=== PATIENT | male | born 1935 | race Caucasian/White ===

== ENCOUNTER 2020-05-14 21:35 | Inpatient (IN) | payer OTHER, MEDICARE ==
[~2020-05-14] VITALS: Ht 170.2 cm; Wt 87.3 kg
[2020-05-14 21:51] VITALS: BP 172/99
[2020-05-14 22:13] LABS: ABSOLUTE NEUTROPHILS 10.6 thou/uL (1.4-8.2); BASOPHILS 0.4 % (0.0-2.0); HEMOGLOBIN 17.7 gm/dL (14.0-18.0); LYMPHOCYTES 4.3 % (24.0-44.0); MCH 31.9 pg (26.0-34.0); MCHC 34.1 g/dL (28.0-37.0); MCV 93.7 fL (80.0-100.0); MONOCYTES 3.7 % (1.0-8.0); PLATELET COUNT 75 thou/uL (150-400); POLYS 91.6 % (36.0-66.0); RBC 5.55 mil/uL (4.50-6.00); RDW 15.5 % (10.5-14.5); WBC 11.6 thou/uL (4.0-11.0)
[2020-05-14 22:24] LABS: ANION GAP 15 mmol/L (7-16); BUN 35 mg/dL (7-18); CALCIUM 8.4 mg/dL (8.5-10.1); CHLORIDE 99 mmol/L (98-107); CO2 22 mmol/L (21-32); CREATININE 1.7 mg/dL (0.7-1.3); GLUCOSE 123 mg/dL (74-106); POTASSIUM 4.3 mmol/L (3.5-5.1); SODIUM 136 mmol/L (136-145)
--- NOTE | 2020-05-14 22:24 | NUR ---
FRIEND SUNDAY WRIGHT, HERE, WILL CHECK AND SEE IF PT WILL ALLOW US TO GIVE INFO TO HER, HE HAS NO LIVING RELATIVES ACCORDING TO MS WRIGHT
[2020-05-14 22:25] LABS: BE(vivo) -4.3 mmol/L (-2 to +3); HCO3 16.6 mmol/L (22.0-26.0); PCO2 23.4 mmHg (35.0-45.0); PO2 52.7 mmHg (80.0-100.0); pH 7.468 (7.360-7.450)
[2020-05-14 22:32] LABS: TROPONIN-I <0.06 ng/mL (<0.06)
[2020-05-14 23:11] LABS: URINE BILIRUBIN 1+ (Negative); URINE BLOOD 3+ (Negative); URINE CLARITY CLOUDY; URINE COLOR BROWN; URINE GLUCOSE-RANDOM* NEGATIVE (Negative); URINE KETONES TRACE (Negative); URINE LEUKOCYTES-REFLEX NEGATIVE (Negative); URINE NITRITE-REFLEX NEGATIVE (Negative); URINE PROTEIN (DIPSTICK) 2+ (Negative); URINE SPECIFIC GRAVITY >= 1.030 (1.005-1.035)
[2020-05-14 23:28] LABS: BACTERIA-REFLEX 1-9 Few /HPF (None Seen); CELLULAR CASTS 0-3 Few /LPF (None Seen); COARSE GRANULAR CASTS 0-3 Few /LPF (None Seen); CRYSTALS None Seen /LPF (None Seen); HYALINE CASTS 4-10 Moderate /LPF (None Seen); MUCUS 4-6 Moderate strn/LPF (None Seen); SQUAMOUS 4-10 Moderate /LPF (0-3); URINE WBC-REFLEX 0-5 Rare /HPF (0-5)
[2020-05-14] MEDS ORDERED: TRAZODONE HCL50 MG PO (23:43)
[2020-05-14] MEDS ORDERED: NORVASC5 MG PO (23:43)
[2020-05-14] MEDS ORDERED: LOPRESSOR50 PO (23:43)
[2020-05-15] VITALS (65 sets, daily range): BP systolic 81–133; BP diastolic 37–76
[2020-05-15 05:35] LABS: BE(vivo) -2.2 mmol/L (-2 to +3); HCO3 21.3 mmol/L (22.0-26.0); PCO2 33.5 mmHg (35.0-45.0); PO2 81.8 mmHg (80.0-100.0); pH 7.421 (7.360-7.450); sO2 96.3 % (92.0-98.0)
--- NOTE | 2020-05-15 06:12 | NUR ---
ASSUMED CARE OF PATIEN FROM ER. ADMISSION COMPLETE WITH INFORMATION FROM PATIENT. DEEP TISSUE INJUIES NOTED TO BUTTOCKS AND SACRUM, PICTURES TAKEN. STATES HE GETS AROUND WITH A WHEELCHAIR AT HOME. HOWEVER I APPEARS HE HAS SOME FOOT DROP. BETTS PLACED PER ER ORDERS. AFTER ADMISSION COMPLETE, ROUNDING ON PATIENT AND HE WAS COMPLETELY LETHARGIC AND ALMOST IMPOSSIBLE TO AROUSE. PULSES PRESENT, SPONTANEOUSLY BREATHING. ORDERS FOR ABG OBTAINED. NO CRITICAL RESULTS. REMAINS ON BIPAP. POOR HISTORIAN. NPO PER ORDERS. POC GOALS ESTABLISHED. WAITING FOR COVID TEST RESULTS.
--- NOTE | 2020-05-15 09:03 | EKG ---
Formerly [facility] [place] [address] ELECTROCARDIOGRAM REPORT Name: LANE MCNULTY Room #: 236-P ADM IN M.R.#: [id number] Admission: 05/15/20 Attend Phys: Saqib Mancilla MD Discharge: Date of : 39 Report #: [id number] THIS REPORT FOR: cc: FAM - Family physician unknown FAM - Family physician unknown Jas Powers MD [facility] ~ THIS REPORT FOR: //name// [facility] ED Test Date: 2020-05-14 Test Time: 22:48:03 Pat Name: LANE MCNULTY Department: Room: 236 Gender: M Nurse Practitioner Hospitalist: : 1935 Requested By: Sergio Hirsch Order Number: [id number] MD: Jas Powers Measurements Intervals [place] Rate: 129 P: 245 [place]: 102 QRS: -104 QRSD: 133 T: 61 QT: 369 QTc: 541 Interpretive Statements 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
--- NOTE | 2020-05-15 10:05 | NUR ---
TALKED WITH DR. PETERSON REGARDING CONSULT. WOULD LIKE TO CONSULT INFECTIONS DISEASE FOR SPESIS MANAGMENT. INTERVENTIONAL RADIOLOGY FOR CENTRAL LINE PLACEMENT. AND START SEPSIS PROTOCOL. CONDITION REPORT GIVEN. OK WITH HOLDING BLOOD PRESSURE MEDICATIONS AT THIS TIME.
--- NOTE | 2020-05-15 10:20 | NUR ---
chart review. unable to visit with rosa zhang and using a bipap. ID consulted. getting central line for iv medication. cm spoke with cm and have a contact of family friend who checks in on him. [facility] [phone] or cell after 9am [phone]. will cont following as needed for dc needs.
--- NOTE | 2020-05-15 11:11 | NUR ---
WOUND CONSULT; ASSESSMENT LIMITED DUE TO COVID RESTRICTIONS. THE PICTURES WERE REVIEWED WITH THE RN WELL DISCUSSED HER ASSESSMENT. THE PATIENT HAS WHAT IS CONSISTANT WITH A DTI TO THE LLE WHICH IS STABLE. THE RIGHT GREAT TOE IS OPEN WITH SCANT DRAINAGE,PRESSURE ETIOLOGY IS POSSIBLE. THE SACRAL/BUTTOCKS AREAS IS CLEARLY A DTI AND IS STABLE. RECOMMENDATIONS; 1-PRAFO BOOTS. 2-BETADINE TO LLE WOUND. 3-ZGUARD AND A SACRAL FOAM TO THE SACRAL/BUTTOCKS AREAS. 4-XEROFORM,GAUZE,KERLIX TO THE RIGHT GREAT TOE AND FOOT. 5-Q2H TURNING DISCUSSED WITH RN
--- NOTE | 2020-05-15 14:00 | NUR ---
INTERVENTIONAL RADIOLOGY HERE TO PLACE CENTRAL LINE.
--- NOTE | 2020-05-15 17:16 | NUR ---
TALKED WITH DR. PETERSON REGARDING MARGINAL BP 90-100'S SYSTOLIC WITH MAP 55-65. CVP RANGE FROM 2-4. ORDER FOR 1000 ML NS OVER 1 HR.
--- NOTE | 2020-05-15 17:50 | NUR ---
TALKED WITH JATIN FAMILY FRIEND. GAVE UPDATE ON PT AFTER PT STATING IT WAS OK TO TALK WITH HER. PT HAS NO FAMILY
[2020-05-15 17:58] LABS: URINE BILIRUBIN NEGATIVE (Negative); URINE BLOOD 3+ (Negative); URINE COLOR YELLOW; URINE GLUCOSE-RANDOM* NEGATIVE (Negative); URINE KETONES NEGATIVE (Negative); URINE NITRITE-REFLEX NEGATIVE (Negative); URINE PROTEIN (DIPSTICK) 1+ (Negative); URINE SPECIFIC GRAVITY 1.025 (1.005-1.035)
[2020-05-15 18:00] LABS: URINE CLARITY HAZY; URINE LEUKOCYTES-REFLEX 1+ (Negative)
[2020-05-15 18:14] LABS: SQUAMOUS 0-3 Few /LPF (0-3)
[2020-05-15 18:15] LABS: BACTERIA-REFLEX >30 Many /HPF (None Seen); URINE RBC 3-10 Few /HPF (0-2); URINE WBC-REFLEX 6-15 Few /HPF (0-5)
[2020-05-15 18:16] LABS: CASTS None Seen /LPF (None Seen); URIC ACID CRYSTALS 4-10 Moderate /LPF (None Seen)
--- NOTE | 2020-05-15 19:03 | NUR ---
PT HAS BECOME MORE RESPONSIVE THROUGHOUT THE SHIFT. CENTRAL LINE PLACED TO RIGHT INTERNAL JUGULAR. PT HAS HAD 2 LOOSE BM'S DURING SHIFT. WOUND CARE COMPLETED. FAMILY FRIEND JATIN UPDATED ON PT CONDITION. BP SYSTOLIC RANGE 90-110.
[2020-05-16] VITALS (21 sets, daily range): BP systolic 93–145; BP diastolic 49–74
[2020-05-16 05:06] LABS: RBC 4.63 mil/uL (4.50-6.00)
[2020-05-16 05:09] LABS: HEMATOCRIT 43.2 % (42.0-52.0); MCH 31.6 pg (26.0-34.0); MCHC 33.9 g/dL (28.0-37.0); MCV 93.4 fL (80.0-100.0); RDW 15.4 % (10.5-14.5); WBC 11.4 thou/uL (4.0-11.0)
[2020-05-16 05:12] LABS: HEMOGLOBIN 14.7 gm/dL (14.0-18.0)
[2020-05-16 05:48] LABS: CALCIUM 7.4 mg/dL (8.5-10.1); MAGNESIUM 2.2 mg/dL (1.8-2.4); POTASSIUM 3.6 mmol/L (3.5-5.1)
[2020-05-16 05:59] LABS: ALBUMIN 2.2 g/dL (3.4-5.0); DIRECT BILIRUBIN 0.5 mg/dL (<0.1-0.2); TOTAL BILIRUBIN 1.1 mg/dL (0.2-1.0); TOTAL PROTEIN 5.4 g/dL (6.4-8.2)
[2020-05-17] VITALS (38 sets, daily range): BP systolic 63–212; BP diastolic 37–123
[2020-05-17 05:18] LABS: BE(vivo) -8.1 mmol/L (-2 to +3); HCO3 22.1 mmol/L (22.0-26.0); PCO2 63.9 mmHg (35.0-45.0); PO2 104.7 mmHg (80.0-100.0); pH 7.156 (7.360-7.450); sO2 96.1 % (92.0-98.0)
--- NOTE | 2020-05-17 07:28 | NUR ---
REPORT RECEIVED. PATIENT IS A/O. DENIES PAIN. ON BIPAP. AT APPROX 2330 PATIENT GETS AGITATED. RT AT THE BED SIDE. DR PETERSON NOTIFIED OF PT HR (140S) AND O2 SATS 80S. ORDER FOR PRN ATIVAN GIVEN. PATIENT CALMS. AT APPROX 0300 PATIENT HR (140-150S) DR PETERSON NOTIFIED. ORDER FOR INTUBATION GIVEN. ER DOCTOR AT THE BEDSIDE TO INTUBATE. PROPOFOL AND FENTANYL FOR SEDATION. RESTRAINTS FOR SAFETY. CRITICAL PH OF 7.[address] PETERSON. ORDER FOR 1 AMP OF BICARB GIVEN. FAMILY NOTIFIED BEFORE INTUBATION. PATIENT CURRENTLY RESTING IN BED. REPORT GIVEN TO ONCOMING RN
[2020-05-17 08:37] LABS: BE(vivo) -5.3 mmol/L (-2 to +3); HCO3 23.7 mmol/L (22.0-26.0); PCO2 60.3 mmHg (35.0-45.0); PO2 82.7 mmHg (80.0-100.0); pH 7.212 (7.360-7.450); sO2 93.7 % (92.0-98.0)
[2020-05-17 08:47] LABS: CALCIUM 7.2 mg/dL (8.5-10.1); CREATININE 0.9 mg/dL (0.7-1.3); POTASSIUM 3.8 mmol/L (3.5-5.1)
--- NOTE | 2020-05-17 11:31 | NUR ---
DR. KRISTEN GREEN. ORDERS FOR EKG, 1L FLUID BOLUS (CVP 2, MARGINAL URINE OUTPUT). PATIENT REMAINS INTUBATED AND SEDATED FOR VENT MANAGEMENT. BLOOD PRESSURES SOFT, WILL RE-ASSESS AFTER FLUID BOLUS. CENTRAL LINE DRESSED CHANGED. UPDATED AUTHORIZED CONTACT JATIN ABOUT PATIENT STATUS AND PLAN OF CARE.
--- NOTE | 2020-05-17 11:58 | EKG ---
[facility] [place] [address] ELECTROCARDIOGRAM REPORT Name: LANE MCN[facility]Y Room #: 236-P ADM IN M.R.#: [id number] Admission: 05/15/20 Attend Phys: Saqib Mancilla MD Discharge: Date of : 39 Report #: [id number] THIS REPORT FOR: cc: FAM - Family physician unknown FAM - Family physician unknown Jas Powers MD [facility] ~ THIS REPORT FOR: //name// [facility] Test Date: 2020-05-17 Test Time: 11:35:36 Pat Name: LANE MCNULTY Department: Room: 236 P Gender: M Brazer Assembler: Abhijeet BROWN : 1935 Requested By: Luis Enrique Jaffe Order Number: [id number] MD: Jas Powers Measurements Intervals [place] Rate: 113 P: [place]: QRS: -96 QRSD: 150 T: -27 QT: 366 QTc: 502 Interpretive Statements Atrial flutter with variable AV block RBBB and LAFB Compared to ECG 05/14/2020 22:48:03 Heart rate has slowed Electronically Signed On 05-17-2020 11:58:30 CDT by Jas Powers [email or web address] <ELECTRONICALLY SIGNED> By: Jas Powers MD, [facility] 05/17/20 1158 1135 1135 Jas Powers MD, [facility] /EPI
--- NOTE | 2020-05-17 12:40 | NUR ---
UPDATED DR. PETERSON AFTER 1L FLUID BOLUS GIVEN ABOUT HYPOTENSION AND LOW URINE OUTPUT.
[2020-05-17 13:47] LABS: HEMATOCRIT 42.4 % (42.0-52.0); HEMOGLOBIN 14.2 gm/dL (14.0-18.0); MCH 31.5 pg (26.0-34.0); MCHC 33.4 g/dL (28.0-37.0); MCV 94.4 fL (80.0-100.0); RBC 4.49 mil/uL (4.50-6.00); RDW 15.8 % (10.5-14.5)
[2020-05-17 15:12] LABS: BE(vivo) -5.7 mmol/L (-2 to +3); HCO3 20.9 mmol/L (22.0-26.0); PCO2 44.6 mmHg (35.0-45.0); PO2 90.9 mmHg (80.0-100.0); pH 7.288 (7.360-7.450)
--- NOTE | 2020-05-17 16:30 | NUR ---
PT RESPONDED WELL TO FLUID BOLUSES. CVP AVERAGE 6, BLOOD PRESSURES IMPROVED. URINE OUTPUT INCREASED. COMMUNICATED WITH DR. PETERSON.
--- NOTE | 2020-05-17 22:16 | NUR ---
PT WAS TAKEN OFF ENHANCED PRECAUTIONS PER DR ROCHA , AND PT WAS MOVED TO POD 2 ROOM 245.
[2020-05-18] VITALS (43 sets, daily range): BP systolic 87–122; BP diastolic 43–72
[2020-05-18 05:06] LABS: HEMATOCRIT 40.2 % (42.0-52.0); HEMOGLOBIN 13.3 gm/dL (14.0-18.0); MCH 31.3 pg (26.0-34.0); MCV 94.7 fL (80.0-100.0); RBC 4.24 mil/uL (4.50-6.00); RDW 15.8 % (10.5-14.5); WBC 8.4 thou/uL (4.0-11.0)
[2020-05-18 05:08] LABS: CALCIUM 6.4 mg/dL (8.5-10.1); CREATININE 0.6 mg/dL (0.7-1.3); POTASSIUM 3.5 mmol/L (3.5-5.1)
[2020-05-18 05:10] LABS: APTT 30.6 Seconds (24.5-32.8); FIBRINOGEN 309.3 mg/dL (210-360); PROTIME 10.6 Seconds (9.3-11.4)
[2020-05-18 05:15] LABS: BE(vivo) -5.3 mmol/L (-2 to +3); HCO3 19.9 mmol/L (22.0-26.0); PCO2 37.5 mmHg (35.0-45.0); PO2 96.2 mmHg (80.0-100.0); pH 7.342 (7.360-7.450)
--- NOTE | 2020-05-18 06:00 | NUR ---
REMAINS INTUBATED AND SEDATED WITH PROPOFOL 30 MCG AND FENTANYL 25 MCG SUCTIONED BLOOD TINGED SPUTUM FROM ET TUBE. 800 CC UO THIS SHIFT. BATHED. RESTRAINED. ATTEMPTS TO PULL AT ET TUBE WHEN BEING TURNED. WILL CONT TO MONITOR.
--- NOTE | 2020-05-18 07:38 | NUR ---
PER DR. ROCHA'S PROGRESS NOTE 05/17. PT. IS NOW INTUBATED AND SEDATED. WILL CONSIDER THIS A CHANGE IN MEDICAL STATUS AND OT IS REQUESTING NEW ORDERS ONCE PT. IS MEDICALLY APPROPRIATE TO BEGIN THERAPY. PLACING PT. ON HOLD.
--- NOTE | 2020-05-18 09:26 | NUR ---
RECEIVED P.T. EVAL ORDERS. Pt INTUBATED AND SEDATED. WILL PLACE Pt ON HOLD IN P.T.. PLEASE REORDER P.T. EVAL WHEN Pt IS MEDICALLY READY TO INITIATE. THANK YOU.
--- NOTE | 2020-05-18 16:12 | NUR ---
SPOKE WITH FRIEND JATIN AND UPDATED ON PT CONDITION AND PLAN OF CARE. DIETARY CONSULT IN BUT DO NOT SEE ANY RECCOMENDATIONS. WILL START VITAL HP AT 20ML/HR. LEFT MESSAGE ON SAIRA'S PHONE THAT WE NEED RECCOMENDATION TOMORROW.
[2020-05-19] VITALS (23 sets, daily range): BP systolic 90–135; BP diastolic 44–69
[2020-05-19 03:40] LABS: BE(vivo) -3.2 mmol/L (-2 to +3); HCO3 22.6 mmol/L (22.0-26.0); PCO2 43.3 mmHg (35.0-45.0); PO2 90.8 mmHg (80.0-100.0); pH 7.335 (7.360-7.450); sO2 96.5 % (92.0-98.0)
[2020-05-19 05:14] LABS: ABSOLUTE NEUTROPHILS 8.2 thou/uL (1.4-8.2); BASOPHILS 0.2 % (0.0-2.0); HEMATOCRIT 39.8 % (42.0-52.0); HEMOGLOBIN 13.3 gm/dL (14.0-18.0); LYMPHOCYTES 3.4 % (24.0-44.0); MCH 31.8 pg (26.0-34.0); MCHC 33.5 g/dL (28.0-37.0); MCV 94.9 fL (80.0-100.0); MONOCYTES 3.3 % (1.0-8.0); PLATELET COUNT 78 thou/uL (150-400); POLYS 93.1 % (36.0-66.0); RBC 4.19 mil/uL (4.50-6.00); RDW 15.6 % (10.5-14.5); WBC 8.8 thou/uL (4.0-11.0)
[2020-05-19 05:31] LABS: CALCIUM 6.7 mg/dL (8.5-10.1); CREATININE 0.5 mg/dL (0.7-1.3); POTASSIUM 3.6 mmol/L (3.5-5.1); TOTAL BILIRUBIN 0.4 mg/dL (0.2-1.0); TOTAL PROTEIN 4.9 g/dL (6.4-8.2)
--- NOTE | 2020-05-19 06:28 | NUR ---
Pt started to become restless at approximately 0430, sedation had been slightly decreased, but required an increase when he started pulling at the restraints and not redirecting. He had been nodding to questions less than an hour before, and nodding no when asked about discomfort. The propofol was increased to 42.5 mcg's (22.2 ml/hr) from 40 mcg's and fentanyl was increased from 30 mcg's to 50 mcg/hr. He had a corresponding increase in his heart rate, to the upper 90's/low 100's, otherwise, his vitals have been stable. His labored respiratory effort was also making the vent alarm. At this time, pt is calmer, heart rate is trending down, he is resting quietly. Of note, urine output was only 450 ml's of cloudy yellow urine with an intake >2 L of IVF's/TF/propofol. The bed is in the low/locked position, the siderails are up x 2 and the pt is slowly progressing towards POC goals.
--- NOTE | 2020-05-19 09:33 | NUR ---
Recommend final goal rate of 55ml/hr of vital high protein. Please address hypernatremia and fluid needs with physician.
--- NOTE | 2020-05-19 10:11 | NUR ---
WOUND CARE F/U; ASSESS WOUNDS W/ WHITE LEAD FILTERER RAYMON, SACRAL AREA HEALING, ~1CM OPEN AREA R BUTTOCK CHEEK, NO S/S INFECTION, SCANT DRAINAGE, R GREAT TOE WOUND OPEN ~1.5CM X1.2CM X .2CM SCANT PINKISH DRAINAGE, NO S/S INFECTION, UPPER LEG WOUND DRY, NO DRAINAGE, REMAINS INTUBATED, PRAFO BOOTS ON, SEE PROCESS INTERVENTION FOR WOUND DETAILS, ALL WOUNDS HEALING, VERY DRY SKIN LOWER LEGS/FEET RECOMMENDATIONS; CONT CURRENT POC, ZGUARD TO SACRAL AREA COVER W/ SACRAL BORDER FOAM, BETADINE TO LLE WOUND, XEROFORM GAUZE KERLIX TO R GREAT TOE, ALL WOUND CARE DAILY, MOISTURE CREAM TO DRY SKIN WHITE LEAD FILTERER AWARE
--- NOTE | 2020-05-19 13:49 | NUR ---
ON-GOING ASSESSMENT: CM REVIEWED CHART. PT REMAINS ON THE VENT AND UNABLE TO WORK WITH THERAPIES AT THIS TIME. PT CONTINUING IV ANBX AND IV STEROIDS. CM WILL CONTINUE TO FOLLOW TO ASSIST NEEDED.
[2020-05-20] VITALS (22 sets, daily range): BP systolic 99–141; BP diastolic 45–77
[2020-05-20 06:31] LABS: CALCIUM 7.1 mg/dL (8.5-10.1); CREATININE 0.7 mg/dL (0.7-1.3); POTASSIUM 4.1 mmol/L (3.5-5.1)
--- NOTE | 2020-05-20 09:00 | NUR ---
ASSUMMED CARE AT [address] ROACH IN. PEEP DECREASED TO 6CM. D5W HUNG FOR ELVATED SODIUM. WILL CONTINUE TO MONITOR.
--- NOTE | 2020-05-20 16:59 | NUR ---
PATIENT'S FRIEND, BERNARDA CALLED AND UPDATED TO PATIENT'S STATUS AND POC.
--- NOTE | 2020-05-20 19:00 | NUR ---
PATIENT PROGRESSING SLOWLY TOWARDS OUTCOME GOALS EVIDENT BY. REMAINS AFEBRILE. AROUSES WITH SEDATION FOR VENT MANAGEMENT. VENT SETTINGS UNCHANGED FROM THIS AM. MONITOR SINUS KATHYA TO SINUS RHYTHM WITH INTERMITTENT 1ST DEGREE AV BLOCK. HEART RATE INCREASES WITH AGGITATION. TOLERATING TUBE FEEDING WITH RESIDUAL DECREASING THROUGHOUT THE DAY, URINE OUTPUT ADEQUATE GREATER THAN 30 ML/HR.
[2020-05-21] VITALS (24 sets, daily range): BP systolic 102–162; BP diastolic 45–89
[2020-05-21 05:39] LABS: BE(vivo) 3.1 mmol/L (-2 to +3); HCO3 28.8 mmol/L (22.0-26.0); PCO2 48.6 mmHg (35.0-45.0); PO2 59.6 mmHg (80.0-100.0); pH 7.391 (7.360-7.450); sO2 90.4 % (92.0-98.0)
[2020-05-21 06:03] LABS: ABSOLUTE NEUTROPHILS 10.7 thou/uL (1.4-8.2); HEMATOCRIT 37.5 % (42.0-52.0); HEMOGLOBIN 12.4 gm/dL (14.0-18.0); LYMPHOCYTES 3.2 % (24.0-44.0); MCH 31.3 pg (26.0-34.0); MCHC 33.2 g/dL (28.0-37.0); MCV 94.4 fL (80.0-100.0); MONOCYTES 2.1 % (1.0-8.0); PLATELET COUNT 111 thou/uL (150-400); POLYS 94.7 % (36.0-66.0); RBC 3.97 mil/uL (4.50-6.00); RDW 15.6 % (10.5-14.5); WBC 11.3 thou/uL (4.0-11.0)
[2020-05-21 06:39] LABS: CALCIUM 7.3 mg/dL (8.5-10.1); CREATININE 0.6 mg/dL (0.7-1.3); POTASSIUM 4.3 mmol/L (3.5-5.1); TOTAL BILIRUBIN 0.3 mg/dL (0.2-1.0); TOTAL PROTEIN 4.8 g/dL (6.4-8.2)
--- NOTE | 2020-05-21 08:57 | NUR ---
Hypernatremia resolving. Consider discontinue D5 fluids as BG are rising and start free water flushes of 250ml every 6hr. If D5 dc'd, then increase TF to 65ml/hr
--- NOTE | 2020-05-21 10:28 | NUR ---
WOUND CARE F/U; ASSESSED WOUNDS W/ CURATOR ZOOLOGICAL MUSEUM HUMBERTO, PT REMAINS ON VENT, SACRAL WOUND ALMOST HEALED, NO S/S INFECTION, R GREAT TOE WOUND HEALING ALSO, PINK VIABLE TISSUE, NO S/S INFECTION, LLE WOUND SCABBED, HEALING. BOTH FEET CLEANSED W/ LOTION APPLIED DUE TO DRY SKIN, IMPROVING, SEE PROCESS INTERVENTION FOR WOUND DETAILS RECOMMENDATIONS; CONT POC, ZGUARD TO SACRAL AREA AND COVER W/ SACRAL BORDER FOAM DAILY AND PRN, XEROFORM TO R GREAT TOE, GAUZE, KERLIX, CONT GOOD FOOT CARE AND LOTION DAILY AND PRN, BETADINE TO LLE DRY SCABBED WOUNDS, OPEN TO AIR CURATOR ZOOLOGICAL MUSEUM AWARE
--- NOTE | 2020-05-21 18:00 | NUR ---
ASSUMED CARE @ 0700 05/21/20, PT ASSESSMENTS AND VSS COMPLETE PER ICU PRT. PT ENCOUNTERED ON PROPOFOL AND FENTANYL GTT FOR VENT MANAGEMENT. SEDATION VACATION PERFORMED, PT ABLE TO FOLLOW COMMANDS. NO CPAP TODAY PER MARLEY, PT VERY WEAK. WILL CONT TO MONITOR.
[2020-05-22] VITALS (29 sets, daily range): BP systolic 99–217; BP diastolic 43–110
[2020-05-22 04:22] LABS: BE(vivo) 3.4 mmol/L (-2 to +3); PCO2 47.6 mmHg (35.0-45.0); PO2 67.7 mmHg (80.0-100.0); pH 7.402 (7.360-7.450); sO2 93.4 % (92.0-98.0)
[2020-05-22 05:56] LABS: HEMATOCRIT 41.4 % (42.0-52.0); HEMOGLOBIN 13.7 gm/dL (14.0-18.0); MCH 31.1 pg (26.0-34.0); MCHC 33.1 g/dL (28.0-37.0); MCV 93.9 fL (80.0-100.0); PLATELET COUNT 151 thou/uL (150-400); RBC 4.41 mil/uL (4.50-6.00); RDW 15.7 % (10.5-14.5); WBC 14.5 thou/uL (4.0-11.0)
[2020-05-22 06:25] LABS: ALBUMIN 2.2 g/dL (3.4-5.0); CALCIUM 7.6 mg/dL (8.5-10.1); CREATININE 0.6 mg/dL (0.7-1.3); POTASSIUM 5.1 mmol/L (3.5-5.1); TOTAL BILIRUBIN 0.5 mg/dL (0.2-1.0); TOTAL PROTEIN 5.1 g/dL (6.4-8.2)
[2020-05-22 06:52] LABS: ABSOLUTE NEUTROPHILS 13.3 thou/uL (1.4-8.2)
[2020-05-22 06:53] LABS: ANISOCYTOSIS 1+; LARGE PLATELETS FEW; PLATELET ESTIMATE NORMAL; POIKILOCYTOSIS 1+; SCHISTOCYTES FEW
--- NOTE | 2020-05-22 08:48 | NUR ---
[facility] AT 0700. PATIENT PLACED ON CPAP AT 0830, FIO2 DECREASED TO 50% PROPOFOL OFF, BP INCREASED TO 181/88 FROM THE 110'S AND HEART RATE INCREASED FROM THE 70'S TO 117. RESP APPEAR LABORED
[2020-05-22 09:04] LABS: BE(vivo) 2.6 mmol/L (-2 to +3); HCO3 27.1 mmol/L (22.0-26.0); PCO2 41.4 mmHg (35.0-45.0); PO2 62.5 mmHg (80.0-100.0); pH 7.434 (7.360-7.450); sO2 92.6 % (92.0-98.0)
--- NOTE | 2020-05-22 16:54 | NUR ---
SW reviewed chart and spoke with attending physician. Pt remains in ICU. Pt is intubated. Vent weaning trials to continue. Pt will need therapy evals ordered when able to participate. No weekend discharge planned. [facility] is following to assist as needed with discharge planning.
--- NOTE | 2020-05-22 19:11 | NUR ---
PATIENT IS RESTING QUIETLY, REMAINS ORALLY INTUBATED WITH SEDATION OF PROPOPOL AND FENTANYL WEANED TO PRE CPAP STATUS. TOLERATING TUBE FEEDINGS, BOWEL SOUNDS MORE ACTIVE, URINE OUTPUT AVERAGING GREATER THAN 100 ML/HR. MONITOR NOW SINUS KATHYA. BP 100 TO 110'S SYSTOLIC WITH MAP GREATER THAN 65 MMHG.
[2020-05-23] VITALS (55 sets, daily range): BP systolic 80–209; BP diastolic 35–112
--- NOTE | 2020-05-23 09:30 | NUR ---
ASSUMED CARE AT 0700, ASSESSMENT AND VITAL SIGNS COMPLETED PER ICU PROTOCOL. RN WILL CONTINUE TO MONITOR.
[2020-05-24] VITALS (61 sets, daily range): BP systolic 71–203; BP diastolic 32–108
--- NOTE | 2020-05-24 07:55 | NUR ---
PT NOT TOLERATING LIGHT SEDATION, HR, RR, AND BP ALL GETS ELEVATED BEYOND NORMAL LIMITS WHEN SEDATION IS LIGHT. FENTANYL AND PROPOFOL TITRATIONS DONE THROUGHOUT THE NIGHT. PT HAS SOFT BP'S WITH SLIGHT INCREASES IN PROPOFOL. VERSED GIVEN X1, FENTANYL MAXED AT 100MCG., AT 0700 PROPOFOL AT 30MCG, PT MODERATELY SEDATED , REPORT GIVEN TO AME MIXON.
[2020-05-24 09:14] LABS: HEMOGLOBIN 13.6 gm/dL (14.0-18.0); MCH 30.9 pg (26.0-34.0); MCHC 33.1 g/dL (28.0-37.0); MCV 93.3 fL (80.0-100.0); PLATELET COUNT 162 thou/uL (150-400); RDW 15.5 % (10.5-14.5); WBC 20.2 thou/uL (4.0-11.0)
[2020-05-24 09:35] LABS: ALBUMIN 1.9 g/dL (3.4-5.0); CALCIUM 7.8 mg/dL (8.5-10.1); CREATININE 0.6 mg/dL (0.7-1.3); POTASSIUM 4.8 mmol/L (3.5-5.1); TOTAL BILIRUBIN 0.5 mg/dL (0.2-1.0)
[2020-05-24 10:23] LABS: ABSOLUTE NEUTROPHILS 18.8 thou/uL (1.4-8.2)
[2020-05-24 10:24] LABS: ANISOCYTOSIS 1+
[2020-05-25] VITALS (42 sets, daily range): BP systolic 90–235; BP diastolic 47–130
--- NOTE | 2020-05-25 10:57 | NUR ---
Recommend new goal tube feed rate of 80ml/hr
--- NOTE | 2020-05-25 11:01 | NUR ---
WOUND CARE F/U; THE WOUNDS WERE ASSESSED WITH THE RN TODAY. THE RIGHT GREAT TOE INJURY OF [place] ETIOLOGY IS PINK WITH SCANT SEROUS DRAINAGE. NO S/S OF INFECTION. THE SACRUM WOUND IS UNCHANGES AND LOOKS MORE LIKE A FRICTION INJURY. RECOMMENDATIONS; CHANGE THE RIGHT GREAT TOE DRESSING TO AG FOAM SECURES WITH 1" ROLLED GAUZE M/W/F PRN RN PRESENT
--- NOTE | 2020-05-25 14:46 | NUR ---
pt remains need for intubation, tube feeding nutritional support. spoke with contact chitra via phone call. no concerns voice. will cont following as needed for dc needs.
--- NOTE | 2020-05-25 17:57 | NUR ---
NO FURTHER PROGRESS IN PATIENT CARE TODAY. ATTEMPTED CPAP TRIAL THIS MORNING. PATIENT DID NOT PASS TRIAL. ATTEMPTS TO WEAN SEDATION. PATIENT DOES NOT TOLERATE. VERSED PUSHES, ATIVAN PRN FOR SEDATION AND AGITATION. WOUND DRESSINGS CHANGED BY WOC RN. INCREASED TUBE FEEDING GOAL RATE TO 80ML/HR. TOLERATING TUBE FEEDS WELL. NO BM.
[2020-05-26] VITALS (12 sets, daily range): BP systolic 109–187; BP diastolic 46–89
[2020-05-26 01:15] LABS: BE(vivo) 4.4 mmol/L (-2 to +3); HCO3 31.4 mmol/L (22.0-26.0); PCO2 56.4 mmHg (35.0-45.0); PO2 64.7 mmHg (80.0-100.0); pH 7.364 (7.360-7.450); sO2 91.6 % (92.0-98.0)
--- NOTE | 2020-05-26 02:44 | NUR ---
ASSESSMENTS CHARTED, MEDS CHARTED GIVEN. PATIENT SEDATED ON VENTILATOR DURING SHIFT. PATIENT'S BLOOD PRESSURE AND HEART RATE JUMPED UP IN THE 200'S OVER 100'S AND HEART RATE OVER [address] ROACH GOT DOSE OF METOPROLOL AND RESTARTED PROPOFOL THOSE ISSUES RESOLVED HIS OXYGEN LEVEL DECREASED SO FIO2 WAS INCREASED TO 70%, THEN INCREASED AGAIN TO 80% ABG WAS DONE, RESULTS CALLED TO DR. ROACH. NO NEW ORDERS WERE RECEIVED. SKIN TONE IS CRAFT AND LIPS ARE BLUE TINGED. FALL PRECAUTIONS IN PLACE DURING SHIFT. PATIENT REMAINS IN RESTRAINTS.
--- NOTE | 2020-05-26 17:37 | NUR ---
ASSESSMENTS AND INTERVENTIONS DOCCUMENTED. DR. STERLING CALLED DUE TO BLOOD PRESSURE DROP. PATIENT THEN GOING HYPERTENSIVE. ORDERS RECIEVED. PATIENT HAVING 1000CC RESIDUAL THIS AM. DR. STERLING AWARE, ORDERS RECIEVED. DR. ROACH ROUNDING ON PATIENT, NO NEW ORDERS. PATIENT GETTING BRADYCARDIC. SEDATION LIGHTENED. MARILEE PATIENT'S FRIEND CALLING ABOUT PATIENT STATUS. SHE WAS UPDATED AND EDUCATED ABOUT PATIENT'S CURRENT STATUS AND POC. PATENT NOT PROGRESSING TOWARDS GOALS AT THIS TIME EVIDECE BY NOT TOLERATING TUBE FEEDING AND NOT FOLLOWING COMMANDS.
[2020-05-27] VITALS (88 sets, daily range): BP systolic 67–169; BP diastolic 36–85
[2020-05-27 05:17] LABS: BE(vivo) 3.6 mmol/L (-2 to +3); HCO3 30.7 mmol/L (22.0-26.0); PCO2 55.4 mmHg (35.0-45.0); PO2 81.5 mmHg (80.0-100.0); pH 7.361 (7.360-7.450); sO2 95.4 % (92.0-98.0)
[2020-05-27 05:25] LABS: HEMATOCRIT 43.3 % (42.0-52.0); HEMOGLOBIN 14.2 gm/dL (14.0-18.0); MCH 30.9 pg (26.0-34.0); MCHC 32.8 g/dL (28.0-37.0); MCV 94.2 fL (80.0-100.0); PLATELET COUNT 171 thou/uL (150-400); RBC 4.59 mil/uL (4.50-6.00); RDW 15.6 % (10.5-14.5)
[2020-05-27 05:43] LABS: ALBUMIN 2.1 g/dL (3.4-5.0); CALCIUM 8.1 mg/dL (8.5-10.1); CREATININE 0.6 mg/dL (0.7-1.3); POTASSIUM 4.9 mmol/L (3.5-5.1); TOTAL BILIRUBIN 0.8 mg/dL (0.2-1.0); TOTAL PROTEIN 5.7 g/dL (6.4-8.2)
--- NOTE | 2020-05-27 07:34 | NUR ---
ASSESSMENTS CHARTED, MEDS CHARTED GIVEN, PATIENT'S BLOOD PRESSURE AND HEART RATE FLUXUATED THROUGHOUT THE NIGHT. ADJUSTED PROPOFOL AND PRESIDEX TO CONTROL RATES. BED BATH GIVEN. NO BOWEL MOVMENT. FALL PRECAUTIONS IN PLACE.
[2020-05-27 09:43] LABS: ANISOCYTOSIS 1+
--- NOTE | 2020-05-27 15:48 | NUR ---
ASSUMED CARE AT 0700. NO SEDATION VACATION PERFORMED DUE TO PATIENT BEING HEMODYNAMICALLY UNSTABLE. INCREASED TUBE FEEDING FROM 30 TO 40 ML/HR. PATIENT ON PROPOFOL GTT AND FENTANYL GTT FOR SEDATION AND VENT MANAGEMENT. CVP MONITOR IN PLACE. VENTILATOR SETTINGS UNCHANGED. NO CPAP TRIAL TODAY. ADQUATE UOP. AFEBRILE.
[2020-05-28] VITALS (46 sets, daily range): BP systolic 100–160; BP diastolic 42–69
[2020-05-28 01:10] LABS: URINE BILIRUBIN NEGATIVE (Negative); URINE BLOOD 1+ (Negative); URINE CLARITY SL CLOUDY; URINE COLOR YELLOW; URINE GLUCOSE-RANDOM* NEGATIVE (Negative); URINE KETONES NEGATIVE (Negative); URINE NITRITE-REFLEX NEGATIVE (Negative); URINE PROTEIN (DIPSTICK) TRACE (Negative)
[2020-05-28 01:12] LABS: URINE LEUKOCYTES-REFLEX 1+ (Negative)
[2020-05-28 01:20] LABS: BACTERIA-REFLEX 1-9 Few /HPF (None Seen); SQUAMOUS 0-3 Few /LPF (0-3); URINE RBC 3-10 Few /HPF (0-2); WBC CLUMPS Moderate (None Seen)
[2020-05-28 01:21] LABS: CASTS None Seen /LPF (None Seen); CRYSTALS None Seen /LPF (None Seen); MUCUS 0-3 Light strn/LPF (None Seen)
--- NOTE | 2020-05-28 10:38 | NUR ---
WOUND CARE F/U; THE LEFT TOE WOUND IS VIRTUALLY HEALED. NO S/S OF INFECTION. WE ASSESSED THE SACRUM AND THE WOUND IS STABLE WITH ALSO NO S/S OF INFECTION. NO CHANGES ARE NECCESSARY, CONTINUE CURRENT TREATMENT. DISCUSSED WITH APURVA
--- NOTE | 2020-05-28 17:45 | NUR ---
ASSUMED CARE @ 0700 05/28/20, PT ASSESSMENTS AND VSS COMPLETE PER ICU PROTOCOL. PT ENCOUNTERED ON PROPOFOL AND FENTANYL FOR VENT MANAGEMENT, NO SEDATION VACATION TOLERATED TODAY, PT DID NOT MEET CRITERIA. FIO2 DECREASED TO 70 FROM 80, SATS IN 90'S, PT ABLE TO TOLERATE. PT ST;SR ON THE MONITOR, CVP MONITORING STILL IN PLACE. PT HAD AN UNEVENTFUL DAY. WILL CONT TO MONITOR.
[2020-05-29] VITALS (73 sets, daily range): BP systolic 102–177; BP diastolic 40–79
--- NOTE | 2020-05-29 05:57 | NUR ---
Max temperature of 99.4 degrees F throughout the night. Pt remains on propofol and fentantly gtt. Pt did not tolerate decreasing the propofol and BP got up to 170's systolic. Thick, blood tinged secretions suctioned out. Pt weaned down to 50% FiO2 and satting at 96% on the monitor. Adequate urine output throughout the night. Weak gag and cough present, pupils sluggish and patient does not follow commands.
--- NOTE | 2020-05-29 12:58 | NUR ---
hospitalist requested cm come to pt room. was having goals of care talk with pt friend chitra. cm wear own mask and face shield during visit. pt neighbor friend chitra, who's been long time friend that checks on him since he has no one. noted she was tearful, support and active listen during visit. hospitalist had cm speak with chitra rt he has resource teacher who might have copy of his living will, his name is pam marroquin dc location, do not have his number here but do at home. goggle did not pull up any pam marroquin resource teacher in dc. rsoa remains intubated with tf for nutritional support. will cont following as needed for dc needs.
--- NOTE | 2020-05-29 19:10 | NUR ---
PATIENT REMAINS INTUBATED ON FENTANYL AND PROPOFOL FOR SEDATION. FAMILY FRIEND JATIN AT THE BEDSIDE, UPDATED ON STATUS AND POC. LIVING WILL PROVIDED - IN CHART.
[2020-05-30] VITALS (55 sets, daily range): BP systolic 104–196; BP diastolic 45–83
--- NOTE | 2020-05-30 11:40 | NUR ---
ON THE VENT, SEDATED FOR VENT MANAGEMENT. WHEN SEDATION IS LIGHTENED, PATIENT BECOMES TACHYCARDIC, TACHYPNIC AND HYPERTENSIVE, OTHERWISE NO RESPONSE AND DOESN'T FOLLOW COMMANDS. ON PROPOFOL AND FENTANYL GTT. KATRIN HUFF IN THIS MORNING AND WAS UPDATED BY DR. MORATAYA. PASTORAL CARE REQUESTED AND PROVIDED BY COMPUTER ENGINEERING TECHNICIAN. TOLERATING TUBEFEEDING PER OG TUBE. BETTS AND FMS IN PLACE.
--- NOTE | 2020-05-30 17:22 | NUR ---
ORDERS TO WITHDRAWL CARE RECIEVED, PATIENT EXTUBATED AT 1713 BY RT.
[2020-05-31] VITALS: BP 119/52
--- NOTE | 2020-05-31 03:42 | NUR ---
PT AT 0205. PRONOUNCED BY THIS RN AND ARIANNA TEMPLE WAS SHORTLY NOTIFIED. REFUGIO WILKES DID NOT WISH TO VISIT BODY. NO PERSONAL EFFECTS WERE WITH PT. FENTANYL GTT WAS DC'D, NO WASTE AVAILABLE. FULL BAG OF FENTANYL WAS RETURNED TO PHARMACY.
== END 2020-05-31 02:05 | DRG 870 ==
LOC: ER 21:35 → EROBS 05-15 00:13 → ICU 05-15 00:13
PROVIDERS: Emergency Medicine; Internal Medicine Hematology & Oncology; Internal Medicine Pulmonary Disease; Nurse Practitioner Family; Pediatrics; Specialist; ADMIT Hospitalist; ATTEND Hospitalist
PROC: 02HV33Z Insertion of Infusion Device into Superior Vena Cava, Percutaneous Approach (ICD-10-PCS; principal; 2020-05-15)
PROC: B548ZZA Ultrasonography of Superior Vena Cava, Guidance (ICD-10-PCS; principal; 2020-05-15)
PROC: 5A09357 Assistance with Respiratory Ventilation, Less than 24 Consecutive Hours, Continuous Positive Airway Pressure (ICD-10-PCS; 2020-05-15)
PROC: 5A09357 Assistance with Respiratory Ventilation, Less than 24 Consecutive Hours, Continuous Positive Airway Pressure (ICD-10-PCS; 2020-05-16)
PROC: 5A1955Z Respiratory Ventilation, Greater than 96 Consecutive Hours (ICD-10-PCS; 2020-05-17)
PROC: 0BH18EZ Insertion of Endotracheal Airway into Trachea, Via Natural or Artificial Opening Endoscopic (ICD-10-PCS; 2020-05-17)
PROC: 5A09357 Assistance with Respiratory Ventilation, Less than 24 Consecutive Hours, Continuous Positive Airway Pressure (ICD-10-PCS; 2020-05-17)
DX: A41.51 Sepsis due to Escherichia coli [E. coli] (principal); J96.01 Acute respiratory failure with hypoxia; J18.9 Pneumonia, unspecified organism; J44.1 Chronic obstructive pulmonary disease with (acute) exacerbation; N17.9 Acute kidney failure, unspecified; M62.82 Rhabdomyolysis; E87.0 Hyperosmolality and hypernatremia; N39.0 Urinary tract infection, site not specified; E46 Unspecified protein-calorie malnutrition; J44.0 Chronic obstructive pulmonary disease with (acute) lower respiratory infection; R65.20 Severe sepsis without septic shock; K62.89 Other specified diseases of anus and rectum; K56.41 Fecal impaction; D69.6 Thrombocytopenia, unspecified; E87.8 Other disorders of electrolyte and fluid balance, not elsewhere classified; R53.81 Other malaise; G20 Parkinson's disease; F02.80 Dementia in other diseases classified elsewhere, unspecified severity, without behavioral disturbance, psychotic disturbance, mood disturbance, and anxiety; E78.5 Hyperlipidemia, unspecified; G47.00 Insomnia, unspecified; I95.9 Hypotension, unspecified; I10 Essential (primary) hypertension; Z20.828 Contact with and (suspected) exposure to other viral communicable diseases; I99.8 Other disorder of circulatory system; Z51.5 Encounter for palliative care; Z79.899 Other long term (current) drug therapy; Z68.30 Body mass index [BMI] 30.0-30.9, adult
CPT/HCPCS: 10078